=== PATIENT | female | born 1945 ===

== ENCOUNTER 2019-03-02 10:37 | Day surgery (SDC) | payer MEDICARE ==
[~2019-03-02] VITALS: Ht 165.1 cm; Wt 64.0 kg
[~2019-03-02 10:37] MED LIST: ALBU2.5V5 NEB; ALEN70 PO; ATOR40TA PO; Isosorbide Mono30 MG PO; LEVSOD125 PO; METO25 PO; MONT10T PO; NAPR500 PO; NASACORT10.8 ML NS; Norco 5-325 Ta1 EACH PO; Plavix75 MG PO; TIOT18
--- NOTE | 2019-03-02 14:34 | NUR ---
PT RETURNED TO RECOVERY ROOM ON BED. RIGHT GROIN SITE SOFT NON-TENDER WITH NO HEMATOMA AND NO PULSATILE BLEEDING. BILAT DP PULSES 2. PT C/O MID-RIGHT BACK PAIN MADE BETTER WITH SHIFTING HIPS/REPOSITIONING. PT HAS VISITOR IN ROOM, CALL LIGHT IN REACH AND PT IS DRIKING COFFEE.
--- NOTE | 2019-03-02 14:53 | NUR ---
DR LISA IN ROOM TO SEE PT.
--- NOTE | 2019-03-02 16:46 | NUR ---
PT AMBULATED TO TO VOID. RIGHT GROIN SITE SOFT NON-TENDER WITH INTACT DRESSING AND NO HEMATOMA AND NO PULSATILE BLEEDING. DISCHARGE INTSTRUCTIONS REVIEWED AND ALL QUESTIONS ANSWERED. 22 G IV DISCONTINUED FROM RIGHT AC WITH INTACT CANNULA. PT ESCORTED OUT VIA WHEELCHAIR ESCORT.
== END 2019-03-02 16:48 | disposition home or self-care (01) ==
LOC: MHTC 10:37 → SURS 10:41 → MHTC 11:00
DX: I73.9 Peripheral vascular disease, unspecified (principal); I10 Essential (primary) hypertension; Z88.2 Allergy status to sulfonamides; Z88.0 Allergy status to penicillin
CPT/HCPCS: 99152; 99153; C1725; C1760; C1769; C1876; C1887; C1894; J1644; J2250; J3010; J7030; Q9967

== ENCOUNTER 2019-05-11 06:41 | Day surgery (SDC) | payer MEDICARE, OTHER ==
[~2019-05-11] VITALS: Ht 165.1 cm; Wt 63.0 kg
[2019-05-11] MEDS ORDERED: NIFE10 PO (11:31)
--- NOTE | 2019-05-11 11:49 | NUR ---
PT UP TO THE BATHROOM /C SBA. TOLERATED WELL. -BLEEDING OR SWELLING. PT AND SON VERBALIZED UNERSTANDING OF WRITTEN AND VERBAL D/C INST. IV REMOVED. PT TAKEN OUT OF THE HRT CENTER VIA W/C.
== END 2019-05-11 12:00 | disposition home or self-care (01) ==
LOC: MHTC 06:41
DX: I70.201 Unspecified atherosclerosis of native arteries of extremities, right leg (principal); I25.10 Atherosclerotic heart disease of native coronary artery without angina pectoris; I10 Essential (primary) hypertension; E03.9 Hypothyroidism, unspecified; F17.210 Nicotine dependence, cigarettes, uncomplicated; Z95.1 Presence of aortocoronary bypass graft; Z79.899 Other long term (current) drug therapy; Z88.0 Allergy status to penicillin; Z88.2 Allergy status to sulfonamides
CPT/HCPCS: 37228; 75716; 75774; 99152; 99153; C1725; C1760; C1769; C1887; C1894; J1644; J2250; J2405; J3010; J7030; Q9967